=== PATIENT | male | born 1950 | race Caucasian/White ===

== ENCOUNTER 2019-01-07 07:51 | Day surgery (SDC) | payer MEDICARE, SELFPAY ==
--- NOTE | 2019-01-07 | LES_PTH ---
PATIENT: ABA HEBERT [place] [facility] [place][id number] AGE/SX: 68/M ROOM: RE01/07/[address]: Dr. Jose Morin MD : 1950 BED: DIS: 01/07/2019 SPEC #: [id number] RECD: 01/07/19 10:31 STATUS: GOLDIE YOLANDA #: [id number] BRAYDEN: 01/07/19 00:[address]: Jose Morin DEPT: SURGICAL PATHOLOGY RECD BY: Vanessa Collado ENTERED: 01/07/19 11:18 SP TYPE: Lesion OTHR DR: Out of Town Doctor Tissues: Skin of external ear, NOS Procedures: Frozen Section (charge) Surgery Specimen Level IV HEADER OPERATION: Excision, benign lesion with neoplasm, right ear PRE-OP DIAGNOSIS: Benign neoplasm of right ear TISSUE SUBMITTED: Right ear lesion FROZEN SECTION DIAGNOSIS Right ear lesion, biopsy: Ulceration with acute and chronic inflammation and granulation. AM:xiomy 01/07/19 MICROSCOPIC DIAGNOSIS Right ear lesion, biopsy: A piece of skin with focal ulceration, associated acute and chronic inflammation and granulation tissue reaction. Acanthosis and hyperkeratosis. Negative for malignancy. See comment. SJ:xiomy 01/10/19 COMMENT The specimen also shows cartilage in the in the deeper portion. MICROSCOPIC DESCRIPTION Slides are reviewed. GROSS DESCRIPTION Received fresh for frozen section diagnosis labeled with the patient's name is a specimen designated right ear lesion. The specimen consists of a piece of mcdonough-white skin measuring 1.3 x 1 x 0.3 cm. The specimen is inked, serially sectioned and submitted entirely in one cassette for frozen section diagnosis. / AM:xiomy 01/07/19 TC:2 CPT: 67418, 64448
[2019-01-07 08:34] VITALS: BP 128/70; PULSE 86; RESP 14; TEMP 36.9; O2SAT 95; BMI 31.2
[2019-01-07] MEDS: Bacitracin 500 UNITS/GM PACKET (10:57)
--- NOTE | 2019-01-07 11:06 | PCM.OPRPT ---
Problem List (1) Other benign neoplasm of skin of right ear and external auricular canal Status: Acute (2) Cellulitis, unspecified Status: Acute Qualifiers: Site of cellulitis: face Qualified Code(s): L03.211 - Cellulitis of face (3) Chondritis of right external ear Status: Acute Report of Operation Date of Procedure: 01/07/19 Pre-Operative Diagnosis: Non-healing ulcer of right ear, suspicious for malignancy Post-Operative Diagnosis: Chronic ulceration of right ear Surgery/Procedure Performed:: Excision of lesion of right ear with advancement flap closure Description of Surgical Findings:: Arron is a 68-year-old male who presents with a nonhealing ulcer of the right external ear. This is been present for over 18 months and is failed to heal causing him to significant discomfort and irritation. Examination showed a nonhealing lesion with a rolled border of the right scaphoid of the ear and given this appearance nonhealing and possible malignancy excision for treatment and definitive evaluation was offered. The risks, alternatives, potential complications, and benefits were discussed at length and any questions answered to the patient and/or caregiver's satisfaction. Witnessed informed consent was obtained in the office, and the patient and/or caregiver was agreeable to proceed. Procedure went as follows: The patient was identified in the preoperative holding and the right ear site marked. The patient was then brought to the operating room in the right ear prepped and draped in usual sterile fashion. The area was then injected with 1% lidocaine with 100,000 epinephrine for a total of 6 mL's. After allowing for vasoconstriction, a 15 blade scalpel was used to excise the lesion of the right scaphoid area of the ear. This was sent for pathologic evaluation which revealed no evidence of malignancy but chronic and acute ulceration. The surrounding area of cartilage was then resected to allow for development of skin flaps for closure of the wound which resulted in a 1 x 1.5 cm defect in the ear. This was then closed after creation of the advancement flaps with deep 3-0 Vicryl suture followed by interrupted 4-0 Prolene's to the skin. The skin was then cleaned of the prep solution and the patient returned to recovery having tolerated the procedure well. Type of Anesthesia:: Local Anesthesiologist: none Specimen's removed: right ear lesion Drains: none Estimated Blood Loss (mL): 15 mL Fluids Replaced: 0 mL Grafts/Implants Used: none - Complications none - Admit VTE Documentation VTE Present on Admission: No VTE Mechan Device Prophylaxis: None VTE Pharm Prophylaxis ordered?: No Reason prophylaxis not ordered:: Procedure Not Indicated
--- NOTE | 2019-01-07 11:13 | DCINST_ITS ---
- Discharge Diagnoses Current Active Problems: Current Active and Chronic Problems Other benign neoplasm of skin of right ear and external auricular canal (Acute) Cellulitis, unspecified (Acute) Chondritis of right external ear (Acute) You will use the following diet at home:: No restrictions Discharge Activity: Return to Normal Activity Call your doctor if your incision/area has: Increased Redness, Foul Smelling Discharge Call your doctor if you observe: Fever of 101 or Higher, Uncontrolled pain Allergies/Adverse Reactions: Allergies codeine Adverse Reaction (Verified 01/07/19 08:14) Vomiting dulaglutide [From Trulicity] Adverse Reaction (Verified 01/07/19 08:16) Vomiting Medications to take at Discharge Albuterol Inhaler 01/07/19 Celecoxib 01/07/19 Diclofenac Sodium [Diclo Gel] 1 ea TP 01/07/19 Duloxetine HCl 60 mg PO 01/07/19 Finasteride 01/07/19 Flash Glucose Scanning [place] [[employer] [place] 14 Day [place]] 01/07/19 Flash Glucose Sensor [Freestyle [place] 14 Day Sensor] 01/07/19 Glimepiride [Amaryl] 1 mg PO DAILY 01/07/19 Metoprolol(XL)Succ [Toprol Xl (Beta Stephanie)] 25 mg PO DAILY 01/07/19 Morphine Sulfate in 0.9 % NaCl [Morphine 200Mg/100Ml-0.9% NaCl] 01/07/19 Pioglitazone [Actos] 01/07/19 Pregabalin [Lyrica] 150 mg PO 01/07/19 Ranitidine [Zantac] 150 mg PO BID 01/07/19 Tamsulosin HCl 0 mg 01/07/19 Triamterene/Hydrochlorothiazid [Triamterene-Hctz 37.5-25 mg Tb] 1 ea PO 01/07/19 metFORMIN (XR) [Glucophage Xr] 01/07/19 traZODone [Desyrel] 50 mg PO DAILY 01/07/19 Primary Care Physician: PIEDAD ACOSTA [Other] Test Results: Test results from this visit will be discussed in further detail at your follow- up appointment, if applicable. Please Follow Up With: Jose Morin MD When: 10 days
[2019-01-07 11:18] VITALS: BP 157/89; PULSE 108; RESP 18; TEMP 36.6; O2SAT 94
== END 2019-01-07 11:35 | disposition home or self-care (01) ==
LOC: SDC 07:53 → AC 07:57
PROVIDERS: Referring Provider Otolaryngology; Visit Provider Otolaryngology
PROC: (CPT 14060; principal; 2019-01-07 09:05)
DX: D23.21 Other benign neoplasm of skin of right ear and external auricular canal (principal); H61.031 Chondritis of right external ear; L98.499 Non-pressure chronic ulcer of skin of other sites with unspecified severity; L03.211 Cellulitis of face; E11.9 Type 2 diabetes mellitus without complications; I10 Essential (primary) hypertension; J45.909 Unspecified asthma, uncomplicated; M19.90 Unspecified osteoarthritis, unspecified site; G47.30 Sleep apnea, unspecified; K21.9 Gastro-esophageal reflux disease without esophagitis; Z79.899 Other long term (current) drug therapy; Z87.891 Personal history of nicotine dependence
CPT/HCPCS: 14060; 88305; 88331

== ENCOUNTER → 2019-05-25 10:21 | Outpatient (CLI) | payer MEDICARE, SELFPAY ==
[2019-05-25 12:27] LABS: Erythrocyte Sedimentation Rate 13 mm/hr (0-20)
[2019-05-25 12:30] LABS: Absolute Neutrophil Count 4.2 X10^3/uL (2.0-7.7); Basophil# 0.05 X10^3/uL; Basophil% 0.8 % (0-1); Eosinophil# 0.48 X10^3/uL; Eosinophils% 7.6 % (0-5); Hematocrit 42.6 % (40-54); Hemoglobin 14.2 g/dL (13.0-16.5); Lymphocyte % 17.3 % (19-41); Mean Corp Hgb Conc 33.3 g/dL (32-36); Mean Corpuscular Volume 90.1 fL (80-94); Mean Platelet Vol. 10.3 fl (6.2-12.0); Monocyte# 0.53 X10^3/uL; Monocyte% 8.3 % (0-10); NRBC Flagged by Analyzer 0 % (0-5); Neutrophil # 4.16 X10^3/uL (2.7-7.7); Neutrophil % 65.5 % (47-70); Platelet Count 194 K/mm3 (150-450); RBC Distribution Width CV 13.3 % (11.6-14.6); RBC Distribution Width SD 43.9 fl (35.1-43.9); Red Blood Count 4.73 M/mm3 (4.6-6.2); White Blood Count 6.4 K/mm3 (4.4-11.0)
[2019-05-25 12:36] LABS: ALB/GLOB Ratio 0.9 RATIO (0.9-2.4); AST(SGOT) 16 U/L (15-37); Alanine Aminotransfer ALT/SGPT 24 U/L (16-61); Albumin, Serum 3.5 g/dL (3.2-5.0); Alkaline Phosphatase 68 U/L (45-117); Anion Gap 6 (5-15); BUN 16 mg/dL (7-18); BUN/Creat Ratio 15.2 RATIO (10-20); CRP 4.91 mg/L (0.0-3.0); Calcium,Total 8.9 mg/dL (8.5-10.1); Chloride 95 mmol/L (98-107); Creatinine, Serum 1.05 mg/dL (0.70-1.30); EST Glomerular Filtration Rate 75 mL/min (>60); Est Glom Filt Rate - Afr Amer 91 mL/min (>60); Globulin 4.1 g/dL (2.2-4.2); Glucose 187 mg/dL (74-106); Protein, Total 7.6 g/dL (6.4-8.2); Rheumatoid Factor < 10.0 IU/mL (<15); Sodium Level 131 mmol/L (136-145)
[2019-05-25 13:38] LABS: Hepatitis B Surface Antibody Non-Reactive; Hepatitis B Surface Antigen Non-Reactive (Nonreactive); Hepatitis C Antibody Non-Reactive (Nonreactive)
[2019-05-26 14:08] LABS: SJOGREN'S Anti-SS-A test < 0.2 AI (0.0-0.9); SJOGREN'S Anti-SS-B test < 0.2 AI (0.0-0.9)
[2019-05-27 00:41] LABS: ANTINUCLEAR ANTIBODIES DIRECT Negative (Negative)
[2019-05-27 04:45] LABS: CCP IgG Antibodies 9 units (0-19); Hepatitis B Core AB IgM Negative (Negative)
== END ==
PROVIDERS: Referring Provider Internal Medicine Rheumatology; Visit Provider Internal Medicine Rheumatology
DX: M06.4 Inflammatory polyarthropathy (principal); M19.041 Primary osteoarthritis, right hand; G90.523 Complex regional pain syndrome I of lower limb, bilateral; K21.9 Gastro-esophageal reflux disease without esophagitis; I10 Essential (primary) hypertension; E11.9 Type 2 diabetes mellitus without complications; E78.5 Hyperlipidemia, unspecified; I44.0 Atrioventricular block, first degree; G47.33 Obstructive sleep apnea (adult) (pediatric); N40.0 Benign prostatic hyperplasia without lower urinary tract symptoms; J45.909 Unspecified asthma, uncomplicated
CPT/HCPCS: 36415; 80053; 85025; 85652; 86038; 86140; 86200; 86235; 86431; 86705; 86706; 86803; 87340

== ENCOUNTER → 2019-08-09 11:51 | Outpatient (CLI) | payer MEDICARE, SELFPAY ==
[2019-08-09 15:02] LABS: Absolute Lymphocyte Count 1.21 X10^3/uL (0.83-4.51); Absolute Neutrophil Count 3.8 X10^3/uL (2.0-7.7); Basophil# 0.03 X10^3/uL; Basophil% 0.5 % (0-1); Eosinophil# 0.68 X10^3/uL; Eosinophils% 10.8 % (0-5); Hematocrit 42.3 % (40-54); Hemoglobin 13.5 g/dL (13.0-16.5); Lymphocyte # 1.21 X10^3/ul (4.0); Lymphocyte % 19.2 % (19-41); Mean Corp Hgb Conc 31.9 g/dL (32-36); Mean Corpuscular Hgb 29.6 pg (27.0-32.0); Mean Corpuscular Volume 92.8 fL (80-94); Mean Platelet Vol. 10.1 fl (6.2-12.0); Monocyte% 9.5 % (0-10); NRBC Flagged by Analyzer 0 % (0-5); Neutrophil # 3.75 X10^3/uL (2.7-7.7); Neutrophil % 59.4 % (47-70); Platelet Count 209 K/mm3 (150-450); RBC Distribution Width CV 15.6 % (11.6-14.6); RBC Distribution Width SD 52.4 fl (35.1-43.9); Red Blood Count 4.56 M/mm3 (4.6-6.2); White Blood Count 6.3 K/mm3 (4.4-11.0)
[2019-08-09 15:03] LABS: ALB/GLOB Ratio 0.9 RATIO (0.9-2.4); AST(SGOT) 17 U/L (15-37); Alanine Aminotransfer ALT/SGPT 27 U/L (16-61); Albumin, Serum 3.5 g/dL (3.2-5.0); Alkaline Phosphatase 68 U/L (45-117); Anion Gap 7 (5-15); BUN 17 mg/dL (7-18); BUN/Creat Ratio 18.2 RATIO (10-20); Calcium,Total 9.5 mg/dL (8.5-10.1); Chloride 94 mmol/L (98-107); Creatinine, Serum 0.93 mg/dL (0.70-1.30); EST Glomerular Filtration Rate 86 mL/min (>60); Est Glom Filt Rate - Afr Amer 104 mL/min (>60); Glucose 156 mg/dL (74-106); Potassium 3.8 mmol/L (3.5-5.1); Protein, Total 7.5 g/dL (6.4-8.2); Sodium Level 133 mmol/L (136-145)
== END ==
PROVIDERS: Referring Provider Internal Medicine Rheumatology; Visit Provider Internal Medicine Rheumatology
DX: M06.4 Inflammatory polyarthropathy (principal); M19.041 Primary osteoarthritis, right hand; G90.523 Complex regional pain syndrome I of lower limb, bilateral; K21.9 Gastro-esophageal reflux disease without esophagitis; I10 Essential (primary) hypertension; E11.9 Type 2 diabetes mellitus without complications; E78.5 Hyperlipidemia, unspecified; I44.0 Atrioventricular block, first degree; G47.33 Obstructive sleep apnea (adult) (pediatric); N40.0 Benign prostatic hyperplasia without lower urinary tract symptoms; J45.909 Unspecified asthma, uncomplicated; Z79.899 Other long term (current) drug therapy
CPT/HCPCS: 36415; 80053; 85025

== ENCOUNTER → 2025-02-02 | Outpatient (CLI) | payer OTHER, SELFPAY ==
[2025-02-02 15:21] LABS: Hematocrit 38.8 % (40-54); Hemoglobin 12.3 g/dL (13.0-16.5); Immature Granulocytes Count 0.030 X10^3/uL (0.0-0.0); Mean Corp Hgb Conc 31.7 g/dL (32-36); Mean Corpuscular Volume 84.5 fL (80-94); Mean Platelet Vol. 10.8 fl (6.2-12.0); NRBC Flagged by Analyzer 0 % (0-5); Platelet Count 188 K/mm3 (150-450); RBC Distribution Width CV 15.4 % (11.6-14.6); RBC Distribution Width SD 47.4 fl (35.1-43.9); Red Blood Count 4.59 M/mm3 (4.6-6.2); White Blood Count 7.0 K/mm3 (4.4-11.0)
[2025-02-02 15:41] LABS: AST(SGOT) 22 U/L (<=37); Alanine Aminotransfer ALT/SGPT 14 U/L (<=46); Albumin, Serum 3.7 g/dL (3.4-4.8); Alkaline Phosphatase 84 U/L (40-129); Anion Gap 10 (5-15); BUN 15 mg/dL (4-19); BUN/Creat Ratio 19.0 RATIO (10-20); Calcium,Total 9.4 mg/dL (7.6-11.0); Carbon Dioxide 25.3 mmol/L (21.0-32.0); Chloride 104 mmol/L (98-108); Globulin 3.1 g/dL (2.2-4.2); Glucose 176 mg/dL (70-99); Potassium 4.3 mmol/L (3.3-5.1)
[2025-02-06 15:08] LABS: PROEL- A/G Ratio 0.9 (0.7-1.7); PROEL- Albumin 3.0 g/dL (2.9-4.4); PROEL- Alpha-1 Globulin 0.3 g/dL (0.0-0.4); PROEL- Alpha-2 Globulin 0.7 g/dL (0.4-1.0); PROEL- Beta Globulin 1.2 g/dL (0.7-1.3); PROEL- Gamma Globulin 1.2 g/dL (0.4-1.8); PROEL- Globulin, Total 3.3 g/dL (2.2-3.9); PROEL- TOTAL PROTEIN 6.3 g/dL (6.0-8.5); PROEL-M-Spike Not Observed g/dL (Not Observed)
== END | disposition home or self-care (01) ==
LOC: MFPLAB 12:24
PROVIDERS: Visit Provider Physician Assistant
DX: L29.89 Other pruritus (principal)
CPT/HCPCS: 36415; 80053; 84165; 85025